=== PATIENT | male | born 1980 | race Asian ===

== ENCOUNTER 2018-03-16 13:32 | Emergency (ER) | payer OTHER ==
--- NOTE | 2018-03-16 14:00 | CPEKG ---
Heart Rate: 106 RR Interval: 566 P-R Interval: 164 QRSD Interval: 88 QT Interval: 328 QTC Interval: 436 P [place]: 47 QRS [place]: -32 T Wave [place]: 19 EKG Severity - OTHERWISE NORMAL ECG - EKG Impression: SINUS TACHYCARDIA EKG Impression: LEFT AXIS DEVIATION Electronically Signed By: Justin Mark 16-Mar-2018 16:01:52
[2018-03-16 14:17] LABS: PLATELET COUNT 345 10^3/uL (150-400)
--- NOTE | 2018-03-16 14:55 | EDPHY ---
H & P Stated Complaint: chest pressure, sob episodes since this am Time Seen by Provider: 03/16/18 14:54 HPI/ROS: CHIEF COMPLAINT: Dyspnea, palpitations HISTORY OF PRESENT ILLNESS: The patient presents to the ED with complaints of dyspnea, mild chest pressure palpitations. The patient reportedly developed the symptoms earlier this morning. They began at 8 o'clock. The patient reports a similar episode of symptoms 2-3 weeks ago. He denies any history of exertional chest pain, pleuritic chest pain, asymmetric calf pain or swelling. The patient has no risk factors for cardiac disease. REVIEW OF SYSTEMS: A comprehensive 10 point review of systems is otherwise negative aside from elements mentioned in the history of present illness. Source: Patient Exam Limitations: No limitations - Personal History Current Tetanus/Diphtheria Vaccine: No Current Tetanus Diphtheria and Acellular Pertussis (TDAP): No - Medical/Surgical History Hx Asthma: No Hx Chronic Respiratory Disease: No Hx Diabetes: No Hx Cardiac Disease: No Hx Renal Disease: No Hx Cirrhosis: No Hx Alcoholism: No Hx HIV/AIDS: No Hx Splenectomy or Spleen Trauma: No Other PMH: seizure disorder. spondylosis - Social History Smoking Status: Never smoked - Physical Exam Exam: General Appearance: Alert, no distress Eyes: Pupils equal and round no pallor or injection ENT, Mouth: Mucous membranes moist Respiratory: There are no retractions, lungs are clear to auscultation Cardiovascular: Regular rate and rhythm Gastrointestinal: Abdomen is soft and nontender, no masses, bowel sounds normal Neurological: A&O, normal motor function, normal sensory exam, normal cranial nerves Skin: Warm and dry, no rashes Musculoskeletal: Neck is supple nontender Extremities: symmetrical, full range of motion Constitutional: Initial Vital Signs Temperature (C) 37.0 C 03/16/18 13:37 Heart Rate 101 H 03/16/18 13:37 Respiratory Rate 16 03/16/18 13:37 Blood Pressure 127/97 H 03/16/18 13:37 O2 Sat (%) 98 03/16/18 13:37 O2 Delivery Mode Room Air Allergies/Adverse Reactions: No Known Allergies Allergy (Unverified 03/16/18 13:35) Home Medications: Medication Instructions Recorded Lamictal 03/16/18 Prednisone 03/16/18 Remicade Inj 100 mg (*) 03/16/18 Medical Decision Making - Diagnostics EKG Interpretation: EKG: Complete interpretation has been separately recorded in the [facility] archive. Summary impression: Sinus tachycardia, rate 106 Imaging Results: Imaging Impressions Chest X-Ray 03/16/18 14:05 Impression: Hypoventilatory chest with no acute findings. ED Course/Re-evaluation: The patient presents to the ED with a 1 day history of mild dyspnea and palpitations. The patient has no risk factors for cardiac disease. His EKG demonstrates no evidence of ischemia. The patient's troponin is normal. The patient's chest x-ray demonstrates no evidence of acute disease. The patient does admit that he is in a high stress job and anxiety may be contributing to his symptoms. Additionally the patient has been using 4-5 cups of caffeine each day. At this point I doubt ACS and favor anxiety. Nonetheless. I will refer the patient to cardiology for consideration of additional testing including echocardiogram and treadmill testing. The patient is advised to return to the ED for markedly worsening symptoms such as exertional chest pain, worsening dyspnea or other concerns. The patient does understand that we cannot fully exclude coronary artery disease based upon the evaluation in the emergency department today. Differential Diagnosis: Differential diagnosis in no particular order considered includes pulmonary embolism, anxiety, acute coronary syndrome, pericarditis, pneumothorax, pneumonia - Data Points Laboratory Results: Laboratory Results 03/16/18 14:00 03/16/18 14:00 03/16/18 03/16/18 03/16/18 14:00 14:00 14:00 WBC 8.58 10^3/uL 10^3/uL (3.80-9.50) RBC 6.96 10^6/uL H 10^6/uL (4.40-6.38) Hgb 15.8 g/dL g/dL (13.7-17.5) Hct 49.7 % % (40.0-51.0) MCV 71.4 fL L fL (81.5-99.8) MCH 22.7 pg L pg (27.9-34.1) MCHC 31.8 g/dL L g/dL (32.4-36.7) RDW 18.0 % H % (11.5-15.2) Plt Count 345 10^3/uL 10^3/uL (150-400) MPV 8.5 fL L fL (8.7-11.7) Neut % (Auto) 54.6 % % (39.3-74.2) Lymph % (Auto) 31.4 % % (15.0-45.0) [place] % (Auto) 10.4 % % (4.5-13.0) Eos % (Auto) 3.0 % % (0.6-7.6) Baso % (Auto) 0.3 % % (0.3-1.7) Nucleat RBC Rel Count 0.0 % % (0.0-0.2) Absolute Neuts (auto) 4.68 10^3/uL 10^3/uL (1.70-6.50) Absolute Lymphs (auto) 2.69 10^3/uL 10^3/uL (1.00-3.00) Absolute Monos (auto) 0.89 10^3/uL H 10^3/uL (0.30-0.80) Absolute Eos (auto) 0.26 10^3/uL 10^3/uL (0.03-0.40) Absolute Basos (auto) 0.03 10^3/uL 10^3/uL (0.02-0.10) Absolute Nucleated RBC 0.00 10^3/uL 10^3/uL (0-0.01) Immature Gran % 0.3 % % (0.0-1.1) Immature Gran # 0.03 10^3/uL 10^3/uL (0.00-0.10) D-Dimer 0.27 ug/mLFEU ug/mLFEU (0.00-0.50) Sodium 141 mEq/L mEq/L (135-145) Potassium 4.7 mEq/L mEq/L (3.5-5.2) Chloride 103 mEq/L mEq/L (97-110) Carbon Dioxide 22 mEq/l mEq/l (22-31) Anion Gap 16 mEq/L mEq/L (8-16) BUN 7 mg/dL mg/dL (7-23) Creatinine 0.9 mg/dL mg/dL (0.7-1.3) Estimated GFR > 60 Glucose 87 mg/dL mg/dL (70-100) Calcium 9.8 mg/dL mg/dL (8.5-10.4) Troponin I < 0.012 ng/mL ng/mL (0.000-0.034) Departure - Departure Disposition: Home, Routine, Self-Care Clinical Impression: Palpitations Condition: Good Instructions: Heart Palpitations (ED) Additional Instructions: 1. Please return to the ED for any worsening symptoms 2. 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 Referrals: Girma Huff MD [Medical Doctor] - As per Instructions
[2018-03-16 15:25] VITALS: BP 117/81
== END 2018-03-16 15:26 | disposition home or self-care (01) ==
DX: R00.2 Palpitations (principal)